=== PATIENT | female | born 1980 | race Caucasian/White ===

== ENCOUNTER 2020-01-28 08:59 | Emergency (ER) | payer MEDICAID ==
[~2020-01-28] VITALS: Ht 170.2 cm; Wt 72.7 kg
[2020-01-28 09:37] LABS: BASOPHILS % (AUTO) 0.5 % (0-1); EOSINOPHILS % (AUTO) 0 % (0-6); HEMATOCRIT 41.8 % (35.0-45.0); HEMOGLOBIN 14.1 g/dl (12.0-16.0); LYMPHOCYTES # (AUTO) 0.7 X10'3 (1.1-4.8); LYMPHOCYTES % (AUTO) 15.3 % (21-51); MEAN CORPUSCULAR HEMOGLOBIN 31.3 PG (27.0-31.0); MEAN CORPUSCULAR HGB CONC 33.7 g/dL (33.0-36.5); MEAN PLATELET VOLUME 8.1 FL (7.4-10.4); MONOCYTES # (AUTO) 0.6 X10'3 (0-0.9); MONOCYTES % (AUTO) 11.8 % (2-12); NEUTROPHILS # (AUTO) 3.5 X10'3 (1.8-7.7); NEUTROPHILS % (AUTO) 72.4 % (42-75); PLATELET COUNT 55 X10'3 (140-440); RED BLOOD COUNT 4.49 X10'6 (4.20-5.60); RED CELL DISTRIBUTION WIDTH 13.9 % (11.5-14.5); WHITE BLOOD COUNT 4.9 X10'3 (4.5-11.0)
[2020-01-28 09:54] LABS: ALANINE AMINOTRANSFERASE 88 U/L (12-78); ALBUMIN 4.3 G/DL (3.4-5.0); ALBUMIN/GLOBULIN RATIO 1.2 (1.1-1.5); ALKALINE PHOSPHATASE 99 IU/L (46-116); ANION GAP 18 (8-16); ASPARTATE AMINO TRANSFERASE 130 U/L (10-37); BLOOD UREA NITROGEN 11 MG/DL (7-18); BUN/CREATININE RATIO 15.1 (6.6-38.0); CALCIUM 8.9 MG/DL (8.5-10.1); CHLORIDE 100 MMOL/L (99-107); CREATININE 0.73 MG/DL (0.40-0.90); GLUCOSE 141 MG/DL (70-104); LIPASE 350 U/L (73-393); POTASSIUM 3.1 MMOL/L (3.5-5.1); SODIUM 142 MMOL/L (135-145); TOTAL CARBON DIOXIDE 24.2 MMOL/L (24-32); TOTAL PROTEIN 7.8 G/DL (6.4-8.2); eGFR 90 ML/MIN
--- NOTE | 2020-01-28 10:46 | NUR ---
PT REPORTS DAILY etoh USE OF 8+ SHOTS TYPICAL. LAST ETOH INTAKE THIS AM. FINE AND COARSE TREMORS, N/V NOTED. AMINTA BEAVERS NOTIFIED.
[2020-01-28] MEDS ORDERED: LORazepam 2 mg/ml vial IV ONE ×2 (10:55→11:45)
[2020-01-28] MEDS ORDERED: diphenhydrAMINE 50 mg/ml inj IV ONE (10:55)
[2020-01-28] MEDS ORDERED: normal saline 1000ml 1,000 ML IV ONE (10:55)
[2020-01-28] MEDS ORDERED: metoclopramide 5 mg/ml inj IV ONE (10:55)
[2020-01-28] MEDS ORDERED: potassium chloride 10mEq ER tablet PO STA (13:08)
[2020-01-28] MEDS ORDERED: HYDR-3686 PO (13:22)
[2020-01-28] MEDS ORDERED: ONDA4TAB6 PO (13:22)
[2020-01-28 13:30] VITALS: BP 115/69
== END 2020-01-28 13:38 | disposition home or self-care (01) ==
LOC: ER 09:00
DX: F10.129 Alcohol abuse with intoxication, unspecified (principal); R11.2 Nausea with vomiting, unspecified; Z88.0 Allergy status to penicillin; Z79.899 Other long term (current) drug therapy; Y90.0 Blood alcohol level of less than 20 mg/100 ml
CPT/HCPCS: 36415; 80053; 83690; 85025; 96361; 96374; 96375; 96376; 99284; J1200; J2060; J2765; J7030

== ENCOUNTER 2020-05-26 02:29 | Emergency (ER) | payer MEDICAID ==
[~2020-05-26] VITALS: Ht 165.1 cm; Wt 68.2 kg
[~2020-05-26 02:29] MED LIST: ONDA4TAB6 PO
[2020-05-26 02:31] VITALS: BP 109/74
--- NOTE | 2020-05-26 02:54 | NUR ---
EDILBERTO MARTINS. REPORT WAS PREVIOUSLY FILED BY Rosmery. CASE# [id number]
[2020-05-26] MEDS ORDERED: ACET-890 PO (03:00)
[2020-05-26] MEDS ORDERED: ACET-1008 PO ×2 (03:10→03:15)
--- NOTE | 2020-05-26 03:10 | NUR ---
[employer] OFFICER IN ROOM
[2020-05-26] MEDS ORDERED: IBUP-1984 PO (03:50)
--- NOTE | 2020-05-26 04:23 | NUR ---
called [facility] for pt to stay tonight as pt has no where else to stay.
--- NOTE | 2020-05-26 04:52 | NUR ---
pt mother omar called back and states she is on her way to pickling operator patient.
== END 2020-05-26 08:37 | disposition home or self-care (01) ==
LOC: ER 02:29
DX: S02.2XXA Fracture of nasal bones, initial encounter for closed fracture (principal); Z59.0 Homelessness; Z56.0 Unemployment, unspecified; Z72.89 Other problems related to lifestyle; Z88.0 Allergy status to penicillin; Z79.899 Other long term (current) drug therapy; Y04.8XXA Assault by other bodily force, initial encounter; Y93.89 Activity, other specified; Y92.89 Other specified places as the place of occurrence of the external cause; Y99.8 Other external cause status
CPT/HCPCS: 70450; 70486; 99285

== ENCOUNTER 2021-03-14 08:32 | Emergency (ER) | payer MEDICAID ==
[~2021-03-14] VITALS: Ht 170.2 cm; Wt 86.4 kg
[2021-03-14 08:41] VITALS: BP 97/60
== END 2021-03-14 18:25 | disposition left against medical advice (07) ==
LOC: ER 08:33
DX: R06.02 Shortness of breath (principal); Z53.21 Procedure and treatment not carried out due to patient leaving prior to being seen by health care provider
CPT/HCPCS: 93005

== ENCOUNTER 2021-07-26 06:00 | Inpatient (IN) | payer MEDICAID ==
[~2021-07-26] VITALS: Ht 172.7 cm; Wt 77.3 kg
[2021-07-26] MEDS ORDERED: LORazepam 2 mg/ml vial IV ONE ×2 (06:25→09:30)
[2021-07-26] MEDS ORDERED: thiamine 100mg/ml 2ml inj. IV ONE (06:25)
[2021-07-26] MEDS ORDERED: ketoconazole 2% cream 15gm TP ONE (06:25)
[2021-07-26] MEDS ORDERED: normal saline 1000ml 1,000 ML IV ONE (06:25)
[2021-07-26 08:21] LABS: URINE HCG NEGATIVE (NEG)
[2021-07-26 08:22] LABS: BASOPHILS # (AUTO) 0.1 X10'3 (0-0.2); BASOPHILS % (AUTO) 1.7 % (0-1); EOSINOPHILS % (AUTO) 0 % (0-6); HEMATOCRIT 35.9 % (35.0-45.0); HEMOGLOBIN 12.3 g/dl (12.0-16.0); LYMPHOCYTES # (AUTO) 0.6 X10'3 (1.1-4.8); MEAN CORPUSCULAR HEMOGLOBIN 31.5 PG (27.0-31.0); MEAN CORPUSCULAR HGB CONC 34.3 g/dL (33.0-36.5); MEAN CORPUSCULAR VOLUME 91.7 FL (78-98); MONOCYTES # (AUTO) 0.6 X10'3 (0-0.9); MONOCYTES % (AUTO) 18.9 % (2-12); NEUTROPHILS # (AUTO) 1.8 X10'3 (1.8-7.7); NEUTROPHILS % (AUTO) 59.4 % (42-75); PLATELET COUNT 62 X10'3 (140-440); RED BLOOD COUNT 3.91 X10'6 (4.20-5.60); RED CELL DISTRIBUTION WIDTH 15.4 % (11.5-14.5)
[2021-07-26 08:25] LABS: URINE AMPHETAMINE SCREEN NEGATIVE (Neg); URINE BARBITUATE SCREEN NEGATIVE (Neg); URINE BENZODIAZEPINES SCREEN NEGATIVE (Neg); URINE CANNABINOID SCREEN NEGATIVE (Neg); URINE COCAINE SCREEN NEGATIVE (Neg); URINE METHADONE SCREEN NEGATIVE (Neg); URINE OPIATE SCREEN NEGATIVE (Neg); URINE PHENCYCLIDINE SCREEN NEGATIVE (Neg)
[2021-07-26 08:34] LABS: ALANINE AMINOTRANSFERASE 88 U/L (12-78); ALBUMIN 3.8 G/DL (3.4-5.0); ALBUMIN/GLOBULIN RATIO 1.2 (1.1-1.5); ALKALINE PHOSPHATASE 126 IU/L (46-116); ANION GAP 14 (8-16); ASPARTATE AMINO TRANSFERASE 112 U/L (10-37); BILIRUBIN,TOTAL 0.9 MG/DL (0.1-1.0); BLOOD UREA NITROGEN 6 MG/DL (7-18); BUN/CREATININE RATIO 10.5 (6.6-38.0); CALCIUM 8.5 MG/DL (8.5-10.1); CHLORIDE 99 MMOL/L (99-107); CREATININE 0.57 MG/DL (0.40-0.90); GLUCOSE 111 MG/DL (70-104); POTASSIUM 3.5 MMOL/L (3.5-5.1); SODIUM 137 MMOL/L (135-145); TOTAL CARBON DIOXIDE 24.1 MMOL/L (24-32); eGFR > 90 ML/MIN
[2021-07-26 08:43] LABS: ETHANOL < 0.010 GM/DL (0.0-0.010); LIPASE 363 U/L (73-393); MAGNESIUM 1.4 MG/DL (1.5-2.4)
[2021-07-26 09:31] LABS: CLARITY,URINE SLIGHTLY CLOUDY (Clear); COLOR,URINE YELLOW (Yellow); GLUCOSE, URINE NEGATIVE (Neg); KETONES,URINE TRACE mg/dl (Neg); LEUKOCYTE ESTERASE ,URINE NEGATIVE (Neg); NITRITES, URINE NEGATIVE (Neg); OCCULT BLOOD,URINE MODERATE (Neg); PROTEIN,URINE 100 mg/dl (Neg); UA COLLECTION TYPE CLN CATCH MIDSTREAM; UROBILINOGEN,URINE 0.2 E.U/dL (0.2-1.0)
[2021-07-26 09:55] LABS: MUCUS STRANDS FEW /LPF (Neg); SQUAMOUS EPITHELIAL CELL,UR MODERATE /LPF (FEW)
--- NOTE | 2021-07-26 09:56 | NUR ---
Pt pulled out IV, pulled off leads, put gown on backwards, writing nonsense on back of name stickers.
[2021-07-26 09:58] LABS: RBC,URINE 0-2 /HPF (0-2); WBC,URINE 0-4 /HPF (0-4)
[2021-07-26 10:00] LABS: CAL OXALATE CRYSTALS 2+ /HPF (NEGATIVE); TRANSITIONAL EPI CELLS,URINE FEW /HPF
[2021-07-26 10:02] LABS: BACTERIA,URINE FEW /HPF (Neg)
[2021-07-26] MEDS ORDERED: haloperidol 5mg tablet PO PRN (10:10)
[2021-07-26] MEDS ORDERED: potassium CL 10mEq/100ml bag 100 ML IV PRN (10:10)
[2021-07-26] MEDS ORDERED: acetaminophen 325mg tablet PO PRN (10:10)
[2021-07-26] MEDS ORDERED: magnesium 4gm in 100ml NS 100 ML IV PRN (10:10)
[2021-07-26] MEDS ORDERED: mag hydrox/Alum hydrox/simeth 30ml oral suspension PO PRN (10:10)
[2021-07-26] MEDS ORDERED: potassium Cl 20 mEq SR tablet PO PRN ×2 (10:10)
[2021-07-26] MEDS ORDERED: magnesium hydroxide 30ml (MOM) UD suspension PO PRN (10:10)
[2021-07-26] MEDS ORDERED: haloperidol lactate 5mg/ml inj IM PRN (10:10)
[2021-07-26] MEDS ORDERED: ondansetron/PF 4mg/2ml inj IV PRN (10:10)
[2021-07-26] MEDS ORDERED: magnesium 2GM in 50ml NS 50 ML IV PRN (10:10)
[2021-07-26] MEDS ORDERED: NO HOME MEDS (11:40)
[2021-07-26] MEDS: LORazepam 2 mg/ml vial IV PRN ×2 (14:04→20:56)
[2021-07-26 18:00] VITALS: BP 141/88
[2021-07-26] MEDS: K and/or MAG REPLACEMENT MC SCH (20:00)
[2021-07-26] MEDS ORDERED: morphine 2 MG/ML inj. syringe IV PRN (20:30)
[2021-07-26] MEDS: docusate sod 100mg capsule PO SCH (20:46)
[2021-07-26] MEDS ORDERED: magnesium Cl slow-release 64mg tablet PO PRN (21:25)
[2021-07-26] MEDS ORDERED: CITA20TA19 PO (22:54)
[2021-07-27] VITALS: BP 113/81
[2021-07-27 01:05] VITALS: BP 128/87
[2021-07-27] MEDS: LORazepam 2 mg/ml vial IV PRN ×4 (01:14→21:33)
--- NOTE | 2021-07-27 05:44 | NUR ---
pt resting in bed. pt has slight tremors and anxiety noted. pt is alert and oriented x 4 follows commands. . call light within reach. bed alarm on
[2021-07-27 05:52] LABS: BASOPHILS % (AUTO) 1.3 % (0-1); EOSINOPHILS % (AUTO) 0.5 % (0-6); HEMATOCRIT 38.5 % (35.0-45.0); HEMOGLOBIN 13.1 g/dl (12.0-16.0); LYMPHOCYTES # (AUTO) 0.9 X10'3 (1.1-4.8); LYMPHOCYTES % (AUTO) 27.7 % (21-51); MEAN CORPUSCULAR HEMOGLOBIN 31.8 PG (27.0-31.0); MEAN CORPUSCULAR HGB CONC 34.1 g/dL (33.0-36.5); MEAN CORPUSCULAR VOLUME 93.3 FL (78-98); MONOCYTES # (AUTO) 0.5 X10'3 (0-0.9); MONOCYTES % (AUTO) 15.4 % (2-12); NEUTROPHILS # (AUTO) 1.8 X10'3 (1.8-7.7); NEUTROPHILS % (AUTO) 55.1 % (42-75); PLATELET COUNT 56 X10'3 (140-440); RED BLOOD COUNT 4.13 X10'6 (4.20-5.60); RED CELL DISTRIBUTION WIDTH 15.9 % (11.5-14.5); WHITE BLOOD COUNT 3.2 X10'3 (4.5-11.0)
[2021-07-27 06:00] VITALS: BP 110/79
[2021-07-27 06:12] LABS: ALANINE AMINOTRANSFERASE 78 U/L (12-78); ALBUMIN 3.7 G/DL (3.4-5.0); ALBUMIN/GLOBULIN RATIO 1.2 (1.1-1.5); ALKALINE PHOSPHATASE 120 IU/L (46-116); AMYLASE 98 U/L (25-115); ANION GAP 10 (8-16); ASPARTATE AMINO TRANSFERASE 90 U/L (10-37); BILIRUBIN,TOTAL 0.8 MG/DL (0.1-1.0); BLOOD UREA NITROGEN 9 MG/DL (7-18); CALCIUM 8.7 MG/DL (8.5-10.1); CHLORIDE 102 MMOL/L (99-107); GLUCOSE 98 MG/DL (70-104); LIPASE 756 U/L (73-393); MAGNESIUM 1.7 MG/DL (1.5-2.4); PHOSPHORUS 4.2 MG/DL (2.3-4.5); POTASSIUM 3.5 MMOL/L (3.5-5.1); SODIUM 139 MMOL/L (135-145); TOTAL CARBON DIOXIDE 26.6 MMOL/L (24-32); TOTAL PROTEIN 6.9 G/DL (6.4-8.2); eGFR > 90 ML/MIN
[2021-07-27] MEDS: K and/or MAG REPLACEMENT MC SCH ×2 (06:51→20:00)
[2021-07-27] MEDS: docusate sod 100mg capsule PO SCH ×2 (08:00→21:14)
[2021-07-27] MEDS ORDERED: FLU VACC QS2021-22(6MOS UP)/PF 60 MCG/0.5 ML SYRINGE IM ONE (10:00)
[2021-07-27 11:00] VITALS: BP 124/90
[2021-07-27] MEDS: naltrexone 50mg tablet PO SCH (15:07)
[2021-07-27 18:00] VITALS: BP 115/75
[2021-07-28] VITALS: BP 119/72
--- NOTE | 2021-07-28 05:26 | NUR ---
PT RESTING IN BED, NO DISTRESS NOTED. PT HAS BEEN CALM, LUCID AND AND LESS TREMORS NOTED. GIVEN ATIVAN OVERNIGHT X 1 FOR ANXIETY . CALL LIGHT WITHIN REACH
[2021-07-28 07:19] LABS: BASOPHILS % (AUTO) 0.7 % (0-1); EOSINOPHILS % (AUTO) 0.5 % (0-6); HEMATOCRIT 38.5 % (35.0-45.0); HEMOGLOBIN 13.1 g/dl (12.0-16.0); LYMPHOCYTES # (AUTO) 0.8 X10'3 (1.1-4.8); LYMPHOCYTES % (AUTO) 19.6 % (21-51); MEAN CORPUSCULAR HEMOGLOBIN 31.4 PG (27.0-31.0); MEAN CORPUSCULAR VOLUME 92.4 FL (78-98); MONOCYTES # (AUTO) 0.5 X10'3 (0-0.9); MONOCYTES % (AUTO) 13.1 % (2-12); NEUTROPHILS # (AUTO) 2.6 X10'3 (1.8-7.7); NEUTROPHILS % (AUTO) 66.1 % (42-75); PLATELET COUNT 78 X10'3 (140-440); RED BLOOD COUNT 4.17 X10'6 (4.20-5.60); RED CELL DISTRIBUTION WIDTH 15.6 % (11.5-14.5); WHITE BLOOD COUNT 3.9 X10'3 (4.5-11.0)
[2021-07-28 07:36] LABS: ALANINE AMINOTRANSFERASE 80 U/L (12-78); ALBUMIN 3.7 G/DL (3.4-5.0); ALBUMIN/GLOBULIN RATIO 0.9 (1.1-1.5); ALKALINE PHOSPHATASE 122 IU/L (46-116); AMYLASE 87 U/L (25-115); ANION GAP 12 (8-16); ASPARTATE AMINO TRANSFERASE 76 U/L (10-37); BILIRUBIN,TOTAL 0.5 MG/DL (0.1-1.0); BLOOD UREA NITROGEN 8 MG/DL (7-18); BUN/CREATININE RATIO 13.1 (6.6-38.0); CALCIUM 8.6 MG/DL (8.5-10.1); CHLORIDE 102 MMOL/L (99-107); CREATININE 0.61 MG/DL (0.40-0.90); GLUCOSE 102 MG/DL (70-104); LIPASE 520 U/L (73-393); PHOSPHORUS 4.1 MG/DL (2.3-4.5); POTASSIUM 3.3 MMOL/L (3.5-5.1); SODIUM 139 MMOL/L (135-145); TOTAL CARBON DIOXIDE 24.8 MMOL/L (24-32); TOTAL PROTEIN 7.8 G/DL (6.4-8.2); eGFR > 90 ML/MIN
[2021-07-28 08:00] VITALS: BP 127/94
[2021-07-28] MEDS: docusate sod 100mg capsule PO SCH (08:00)
[2021-07-28] MEDS ORDERED: CITALOpram 10mg tablet PO SCH (08:00)
[2021-07-28] MEDS: K and/or MAG REPLACEMENT MC SCH (08:00)
[2021-07-28] MEDS: naltrexone 50mg tablet PO SCH (08:25)
[2021-07-28] MEDS ORDERED: LORazepam 2 mg/ml vial IV PRN (10:10)
[2021-07-28] MEDS ORDERED: LORazepam 1 MG tablet PO PRN (10:10)
[2021-07-28] MEDS ORDERED: NALT50TA PO (10:21)
[2021-07-28] MEDS ORDERED: CITA20TA19 PO (10:21)
[2021-07-28 12:00] VITALS: BP 122/95
[2021-07-30] MEDS ORDERED: LORazepam 2 mg/ml vial IV PRN (10:10)
[2021-07-30] MEDS ORDERED: LORazepam 1 MG tablet PO PRN (10:10)
== END 2021-07-28 11:58 | disposition home or self-care (01) | DRG 282 ==
LOC: ER 06:00 → ED HOLD 10:23 → SUR 3N 17:50
PROVIDERS: ADMIT Family Medicine; ATTEND Family Medicine
DX: K85.20 Alcohol induced acute pancreatitis without necrosis or infection (principal); F10.231 Alcohol dependence with withdrawal delirium; D69.59 Other secondary thrombocytopenia; E87.6 Hypokalemia; F32.A Depression, unspecified; R74.01 Elevation of levels of liver transaminase levels; Z59.00 Homelessness unspecified; Z28.21 Immunization not carried out because of patient refusal; Z88.0 Allergy status to penicillin; Z56.0 Unemployment, unspecified
CPT/HCPCS: 36415; 71045; 80053; 80305; 80320; 81001; 81025; 82150; 82948; 83690; 83735; 84100; 84484; 85025; 85610; 87081; 93005; 97161; 99285; G0378; J2060; J2270; J2405; J3411; J7030